=== PATIENT | male | born 1950 | race Caucasian/White ===

== ENCOUNTER 2017-04-28 04:21 | Emergency (ER) | payer SELFPAY ==
[2017-04-28] MEDS ORDERED: ETOMIDATE 40 MG/20 ML INJ IVP ONE (04:25)
[2017-04-28] MEDS ORDERED: SUCCINYLCHOLINE CHLORIDE 200 MG/10 ML SYR IVP ONE (04:25)
[2017-04-28] MEDS ORDERED: NOREPINEPHRINE/NS 4 MG/500 ML BAG IV ONE (04:27)
[2017-04-28] MEDS ORDERED: PROPOFOL/EMULSION 1,000 MG/100 ML BOTTLE IV ONE (04:29)
[2017-04-28] MEDS ORDERED: NS 1,000 ML IV ONE ×2 (04:30→04:36)
[2017-04-28 04:37] LABS: PLATELET COUNT 242 10^3/uL (150-400)
[2017-04-28 04:44] LABS: INR 2.22 (0.83-1.16); PROTIME(PATIENT) 24.6 SEC (12.0-15.0)
--- NOTE | 2017-04-28 04:45 | EDPHY ---
H & P Stated Complaint: RESP DISTRESS HPI/ROS: HPI CHIEF COMPLAINT: Respiratory distress, LVAD device HISTORY OF PRESENT ILLNESS: This patient is a 66-year-old male, he presents to the emergency room by EMS from a local residence initially in respiratory distress and subsequently being unresponsive. Patient recently had LVAD device placed at [facility] in February. He called 911 tonight for respiratory distress and shortness of breath when EMS arrived to find him he was in respiratory distress minimally responsive with an LVAD device running. Upon arrival to the emergency room he was immediately brought into ER room 2 where I greeted him. He was unresponsive. On full face CPAP by EMS. His LVAD device was not running when I auscultated his chest. He had no peripheral pulses. He had cool extremities. Breathing with agonal respirations. The decision was made to immediately to emergently intubate him by myself with RSI medications. 20 mg IV etomidate was used. 100 mg of succinylcholine was used. It was noted on the monitor upon arrival that he was in a wide complex tachycardic rhythm in the 160s to 180s. Upon arrival we plugged his LVAD device in. I then re-auscultated his chest. I can hear a humming in his chest. Because of the Wide Complex Tachycardia in the 180s, The patient was shocked multiple times with the defibrillator, initially 200 joules which did not work. A subsequent shock was given a 200 joules. He remained in a wide complex tachycardia in the 180s The patient was then shocked at 360 joules. This converted him to a rate of 180 down to 96 with a narrower complex. The patient was also given a amiodarone bolus 300mg. Amio Gtt. An ABG was obtained. Showed low PH. Two Amps of Bicarb were given. [facility] was Contacted as this is where he had this placed. Critical Care Transport was Asked to fly him to [facility], however they are unable to transport him by helicopter due to weather. They will transport him by ground transportation to [facility] where cardiology can further see and evaluate him. Patient had a chest x-ray. The endotracheal is slightly high at the clavicle. It Will need to be advanced. Additionally the chest x-ray is reviewed. There is significant pulmonary edema in the right lung and left lung and cardiomegaly concerning for failure. Past Medical History: Unknown medical history as there is no old records here and limited history from EMS. Patient unable to give history. Past Surgical History: Recent LVAD in February Social History: Unknown Family History: Unknown ROS REVIEW OF SYSTEMS: Limited due to the patient's clinical state. Exam Constitutional unresponsive Eyes pupil equal round react to light 3 mm HENT oropharynx shows a large amount of blood present. Respiratory decreased breath sounds bilaterally, agonal respirations upon arrival Cardiovascular tachycardic 180s Gastrointestinal LVAD device inserted into the left abdomen. Musculoskeletal extremities are normal. However cool to palpation Skin cool skin. Neurologic unresponsive Differential Diagnosis: Includes but is not limited to in a particular order: Malfunction of the LVAD device, pulmonary hemorrhage, heart failure, pneumonia, acute coronary syndrome, KS, aortic dissection, aortic rupture, respiratory failure, ventricular tachycardia. Medical Decision Making: Please see details above however the patient was emergently intubated upon arrival due to respiratory failure. The LVAD coordinator was called, Spoke with Leslie at [facility] to trouble shoot LVAD device. The LVAD device was trouble shooted. It was plugged in. It now is on as he was not running when he arrived. There is a good harming tone in his chest. The LVAD device shows the following settings 5200, 4.1 flow, 2.4 PI, 3.7 Power. 0449AM: The patient is now stable at this time. He has a heart rate of 100. Blood pressure 110/65. This was after he was intubated received multiple shocks. Re-evaluation: Critical Care: Total Critical Care Time Spent Managing this Patient: 65 Minutes. This time was spent Exclusively with this patient. This Care was exclusive of procedures. The Organ System/life at risk was cardiopulmonary arrest, ventricular tachycardia, LVAD complication, pulmonary hemorrhage, CHF This Patient was in Critical Condition because cardiopulmonary arrest, ventricular tachycardia, LVAD complication, CHF, pulmonary hemorrhage I did speak with Dr. Rojas, with [facility] Discussed this case. She has agreed to accept this patient in transfer. I do feel that this patient is hemodynamically stable for transfer to [facility]. LVAD is running. He has a good blood pressure. His heart rate is in the 90s to 100s. His ABG is been reviewed he does have a PaO2 of 60. He is on FiO2 of 100% on his ventilator. Dr. Rojas, requested that I give him 80 mg of Lasix which I ordered, additionally I did give him broad-spectrum antibiotics IV vancomycin and IV Zosyn as he did have a fever here of 39 degrees. Blood cultures were pulled. Blood work and a ABG reviewed. Final diagnosis cardiopulmonary arrest, ventricular tachycardia, LVAD complication, CHF/pulmonary edema/pulmonary hemorrhage//respiratory failure. Source: Patient, EMS - Personal History Current Tetanus Diphtheria and Acellular Pertussis (TDAP): Unsure - Medical/Surgical History Other PMH: L VENT ASSIST DEVICE Constitutional: Initial Vital Signs Temperature (C) 36.5 C 04/28/17 04:20 Heart Rate 172 H 04/28/17 04:20 Respiratory Rate 35 H 04/28/17 04:20 Blood Pressure 155/137 H 04/28/17 04:20 O2 Sat (%) 85 L 04/28/17 04:20 O2 Delivery Mode Ventilator Allergies/Adverse Reactions: No Known Allergies Allergy (Unverified 04/28/17 04:25) Medical Decision Making - Data Points Laboratory Results: Laboratory Results 04/28/17 04:30 04/28/17 04:30 04/28/17 04/28/17 04/28/17 05:10 04:40 04:30 WBC RBC Hgb Hct MCV MCH MCHC RDW Plt Count MPV Neut % (Auto) Lymph % (Auto) Rosebud % (Auto) Eos % (Auto) Baso % (Auto) Nucleat RBC Rel Count Absolute Neuts (auto) Absolute Lymphs (auto) Absolute Monos (auto) Absolute Eos (auto) Absolute Basos (auto) Absolute Nucleated RBC Immature Gran % Immature Gran # PT 24.6 SEC H SEC (12.0-15.0) INR 2.22 H (0.83-1.16) APTT 36.7 SEC SEC (23.0-38.0) Puncture Site LEFT RADIAL LEFT RADIAL Patient Temperature 40.4 DEGREES DEGREES 39.0 DEGREES DEGREES pCO2 57 mmHg H mmHg 60 mmHg H mmHg (34-38) (34-38) pO2 74 mmHg mmHg 96 mmHg H mmHg (65-75) (65-75) Total CO2 20 mEq/L L mEq/L 17 mEq/L L mEq/L (23-27) (23-27) ABG pH 7.16 L* 7.06 L* (7.35-7.45) (7.35-7.45) ABG PO2/FiO2 Ratio 74 RATIO RATIO 96 RATIO RATIO ABG HCO3 18 mEq/L L mEq/L 16 mEq/L L mEq/L (22-26) (22-26) ABG O2 Saturation 78 % L % 88 % L % (92-95) (92-95) ABG Base Excess -9.6 mEq/L L mEq/L -15.0 mEq/L L mEq/L (-2.5-2.5) (-2.5-2.5) O2 Concentration % 100 % % 100 % % (0-100) (0-100) Respiration Rate 40 Actual Respiration Rate 40 Set Respiration Rate 12 12 SIMV YES Assist Control YES Tidal Volume 500 500 PEEP 5 5 Pressure Support 7 Sodium Potassium Chloride Carbon Dioxide Anion Gap BUN Creatinine Estimated GFR Glucose Calcium Troponin I NT-Pro-B Natriuret Pep 04/28/17 04/28/17 04:30 04:30 WBC 17.12 10^3/uL H 10^3/uL (3.80-9.50) RBC 5.43 10^6/uL 10^6/uL (4.40-6.38) Hgb 15.4 g/dL g/dL (13.7-17.5) Hct 50.6 % % (40.0-51.0) MCV 93.2 fL fL (81.5-99.8) MCH 28.4 pg pg (27.9-34.1) MCHC 30.4 g/dL L g/dL (32.4-36.7) RDW 15.8 % H % (11.5-15.2) Plt Count 242 10^3/uL 10^3/uL (150-400) MPV 10.2 fL fL (8.7-11.7) Neut % (Auto) 65.8 % % (39.3-74.2) Lymph % (Auto) 25.9 % % (15.0-45.0) Rosebud % (Auto) 4.9 % % (4.5-13.0) Eos % (Auto) 1.4 % % (0.6-7.6) Baso % (Auto) 0.7 % % (0.3-1.7) Nucleat RBC Rel Count 0.0 % % (0.0-0.2) Absolute Neuts (auto) 11.26 10^3/uL H 10^3/uL (1.70-6.50) Absolute Lymphs (auto) 4.44 10^3/uL H 10^3/uL (1.00-3.00) Absolute Monos (auto) 0.84 10^3/uL H 10^3/uL (0.30-0.80) Absolute Eos (auto) 0.24 10^3/uL 10^3/uL (0.03-0.40) Absolute Basos (auto) 0.12 10^3/uL H 10^3/uL (0.02-0.10) Absolute Nucleated RBC 0.00 10^3/uL 10^3/uL (0-0.01) Immature Gran % 1.3 % H % (0.0-1.1) Immature Gran # 0.22 10^3/uL H 10^3/uL (0.00-0.10) PT INR APTT Puncture Site Patient Temperature pCO2 pO2 Total CO2 ABG pH ABG PO2/FiO2 Ratio ABG HCO3 ABG O2 Saturation ABG Base Excess O2 Concentration % Respiration Rate Actual Respiration Rate Set Respiration Rate SIMV Assist Control Tidal Volume PEEP Pressure Support Sodium 143 mEq/L mEq/L (135-145) Potassium 3.6 mEq/L mEq/L (3.5-5.2) Chloride 102 mEq/L mEq/L (97-110) Carbon Dioxide 18 mEq/l L mEq/l (22-31) Anion Gap 23 mEq/L H mEq/L (8-16) BUN 21 mg/dL mg/dL (7-23) Creatinine 1.2 mg/dL mg/dL (0.7-1.3) Estimated GFR > 60 Glucose 261 mg/dL H mg/dL (70-100) Calcium 9.5 mg/dL mg/dL (8.5-10.4) Troponin I 0.030 ng/mL ng/mL (0.000-0.034) NT-Pro-B Natriuret Pep 5000 pg/mL H pg/mL (0-125) Medications Given: Discontinued Medications Etomidate (Etomidate) 20 mg IVP EDNOW ONE Stop: 04/28/17 04:26 Last Admin: 04/28/17 04:27 Dose: 20 mg Furosemide (Lasix Injection) 80 mg IVP EDNOW ONE Stop: 04/28/17 05:01 Last Admin: 04/28/17 05:06 Dose: 80 mg Sodium Chloride (Ns) 1,000 mls @ 0 mls/hr IV EDNOW ONE; Wide Open PRN Reason: Protocol Stop: 04/28/17 04:37 Last Admin: 04/28/17 04:27 Dose: 1,000 mls Amiodarone HCl (Amiodarone Hcl) 200 mls @ 0 mls/hr IV EDNOW ONE PRN Reason: Per Protocol Stop: 04/28/17 05:01 Last Admin: 04/28/17 05:24 Dose: 200 mls Sodium Chloride (Ns) 1,000 mls @ 0 mls/hr IV ONCE ONE PRN Reason: Wide Open Stop: 04/28/17 04:31 Last Admin: 04/28/17 04:30 Dose: 1,000 mls Vancomycin/Sodium Chloride (Vancomycin 1 Gm (Premix)) 250 mls @ 250 mls/hr IV EDNOW ONE PRN Reason: Protocol Stop: 04/28/17 06:01 Last Admin: 04/28/17 05:27 Dose: 250 mls Piperacillin/Tazobactam/Dextrose (Zosyn (Premix)) 100 mls @ 200 mls/hr IV EDNOW ONE PRN Reason: Protocol Stop: 04/28/17 05:31 Last Admin: 04/28/17 05:25 Dose: 100 mls Sodium Bicarbonate (Sodium Bicarbonate) 50 meq IVP EDNOW ONE Stop: 04/28/17 05:01 Last Admin: 04/28/17 05:03 Dose: 50 meq Sodium Bicarbonate (Sodium Bicarbonate) 50 meq IVP ONCE ONE Stop: 04/28/17 05:01 Last Admin: 04/28/17 05:03 Dose: 50 meq Succinylcholine Chloride (Quelicin) 100 mg IVP EDNOW ONE Stop: 04/28/17 04:26 Last Admin: 04/28/17 04:28 Dose: 100 mg Departure - Departure Disposition: Acute Care Hospital [facility] Clinical Impression: Cardiopulmonary arrest Left ventricular assist device (LVAD) complication Qualifiers: Encounter type: initial encounter Qualified Code(s): T82.9XXA - Unspecified complication of cardiac and vascular prosthetic device, implant and graft, initial encounter Congestive heart failure Qualifiers: Congestive heart failure type: unspecified Congestive heart failure chronicity : acute Qualified Code(s): I50.9 - Heart failure, unspecified Respiratory failure Qualifiers: Chronicity: acute Respiratory failure complication: hypoxia Qualified Code(s): J96.01 - Acute respiratory failure with hypoxia Fever Qualifiers: Fever type: unspecified Qualified Code(s): R50.9 - Fever, unspecified Condition: Critical Referrals: Patient,NotPresent [Primary Care Provider] - As per Instructions
[2017-04-28] MEDS ORDERED: SODIUM BICARBONATE 50 MEQ/50 ML SYR IVP ONE ×2 (05:00)
[2017-04-28] MEDS ORDERED: FUROSEMIDE 40 MG/4 ML VIAL IVP ONE (05:00)
[2017-04-28] MEDS ORDERED: AMIODARONE HCL 200 ML IV ONE (05:00)
[2017-04-28] MEDS ORDERED: PIPERACILLIN/TAZO 4.5 GM/DEX 100 ML IV ONE (05:02)
[2017-04-28] MEDS ORDERED: VANCOMYCIN HCL/NORMAL SALINE 250 ML IV ONE (05:02)
[2017-04-28 06:01] VITALS: BP 97/53; RESP 30; O2SAT 91
[2017-04-28 06:03] VITALS: PULSE 126; TEMP 102.7
[2017-04-28] MEDS ORDERED: EPINEPHrine 1 MG/10 ML SYR IVP ONE (07:12)
[2017-04-28] MEDS ORDERED: AMIODARONE HCL 150 MG/3 ML VIAL ONE (07:12)
[2017-04-28] MEDS ORDERED: CALCIUM CHLORIDE 1 GM/10 ML INJ ONE (07:12)
[2017-04-28] MEDS ORDERED: SODIUM BICARBONATE 50 MEQ/50 ML SYR ONE (07:12)
== END 2017-04-28 05:52 | disposition short-term general hospital (02) ==
LOC: EDBD 04:21
DX: I46.9 Cardiac arrest, cause unspecified (principal); J96.01 Acute respiratory failure with hypoxia; T82.9XXA Unspecified complication of cardiac and vascular prosthetic device, implant and graft, initial encounter; R50.9 Fever, unspecified; Y71.2 Prosthetic and other implants, materials and accessory cardiovascular devices associated with adverse incidents
CPT/HCPCS: 96365; J0282; J0330; J1940; J2543; J2704; J3370